=== PATIENT | female | born 1960 | race Caucasian/White ===

== ENCOUNTER 2019-04-02 11:04 | Outpatient (CLI) | payer OTHER ==
--- NOTE | 2019-04-03 10:01 | PET Report ---
PET/CT HISTORY: R91.8. Right lung mass TECHNIQUE: The patient's fasting blood glucose was 105. The patient weighed 134 lbs. The patient w as injected with 14.3 mCi of FDG in the right antecubital fossa at 1214 hours and imaging was started at 1306 hours. The patient was imaged from the skull base to the thighs. All CT scans at this [facility] are performed using CT dose reduction for ALARA by means of automated exposure control. Images we re reviewed on a workstation. COMPARISON: None at this facility FINDINGS: IMAGED BRAIN: [Physiologic FDG uptake]. Moderate to severe chronic appearing pansinusitis is noted. NECK: [There is focal uptake in the left superior neck which appears to correlate to a borderline le ft jugular lymph node. Max SUV of this node measures 7.3.] CHEST WALL: [Physiologic FDG uptake] MEDIASTINUM: [There are multiple borderline to mildly enlarged mediastinal lymph nodes which demonst rate hypermetabolic activity. A 1.1 cm right paratracheal lymph node demonstrates a max SUV of 6.3. A 2.3 cm subcarinal lymph node demonstrates a max SUV of 11.5. There are a few borderline right hilar lymph nodes with max SUV measuring up to 9.3. There are a few borderline left hilar lymph nodes with max SUV measuring up to 6.5.] LUNGS: [A 2.6 x 2.2 cm right suprahilar masslike lesion is identified. There appear to be small sutu re lines along the margins of this lesion suggesting previous surgical changes, correlate with histor y. This lesion is hypometabolic with max SUV measuring 2.0. HEPATOBILIARY: [Physiologic FDG uptake]. Liver SUV measures 4.5. PANCREAS: [Physiologic FDG uptake SPLEEN: [Physiologic FDG uptake] KIDNEYS/BLADDER: [Physiologic FDG uptake] ADRENAL GLANDS: [Physiologic FDG uptake] GI/MESENTERY: [Physiologic FDG uptake] PELVIC VISCERA: [Physiologic FDG uptake] LYMPH NODES: [Physiologic FDG uptake] OSSEOUS STRUCTURES: [Physiologic FDG uptake] ADDITIONAL FINDINGS: [None] IMPRESSION: A 2.6 x 2.2 cm right suprahilar lung lesion is identified although this lesion is hypometabolic with max SUV measuring 2.0. There is suggestion of previous surgical changes in this area. Please correlat e with the patient's history. There are multiple borderline to mildly enlarged and hypermetabolic mediastinal lymph nodes as descri bed above. There is also a similar appearing hypermetabolic left jugular lymph node. Metastatic disea se or lymphoma cannot be excluded. No abnormal metabolic activity is identified inferior to the diaphragm. Severe chronic pansinusitis. Signer Name: Gorge Toth Jr, MD Signed: 04/03/2019 9:56 AM Workstation Name: [id number]
== END 2019-04-02 11:05 | disposition home or self-care (01) ==
LOC: PET 11:04
PROVIDERS: ATTEND Internal Medicine
DX: R91.1 Solitary pulmonary nodule (principal); J32.4 Chronic pansinusitis
CPT/HCPCS: 78815; 82962; A9552

== ENCOUNTER 2021-05-01 13:39 | Outpatient (CLI) | payer OTHER ==
[2021-05-01 14:37] LABS: Hematocrit 45.4 % (30.3-42.9); Mean Corpuscular HGB Conc 33 % (30-34); Mean Corpuscular Volume 92 fl (79-97); Platelet Count 336 K/mm3 (140-440); Red Blood Count 4.94 M/mm3 (3.65-5.03); Red Cell Distribution Width 13.5 % (13.2-15.2)
[2021-05-01 14:54] LABS: ABG Base Excess 1.7 mmol/L (-2.0-3.0); ABG HCO3 24.6 mmol/L (20.0-26.0); ABG Methemoglobin 0.5 % (0.0-1.5); ABG Oxygen Saturation 94.9 % (95.0-99.0); ABG PCO2 33.8 mm Hg; ABG PH 7.479 pH Units (7.350-7.450); ABG PO2 62.1 mm Hg (80.0-90.0)
[2021-05-01 14:57] LABS: Alanine Aminotransferase 23 units/L (7-56); Albumin 4.6 g/dL (3.9-5); Blood Urea Nitrogen 5 mg/dL (7-17); Calcium 10.2 mg/dL (8.4-10.2); Chol/HDL Ratio 2.37 %; HDL Cholesterol 81 mg/dL (40-59); Hemolysis Index 4; LDL Cholesterol,Direct 105 mg/dL (50-130)
[2021-05-01 15:01] LABS: BUN/Creatinine Ratio 8
--- NOTE | 2021-05-01 16:56 | XRay Report ---
CHEST 2 VIEWS INDICATION / CLINICAL INFORMATION: J47.9-Bronchiectasis. COMPARISON: PET scan dated 04/02/19 FINDINGS: SUPPORT DEVICES: None. HEART / MEDIASTINUM: No significant abnormality. LUNGS / PLEURA: No acute airspace disease. Nodular density in the right suprahilar region is unchange d. This density was not hypermetabolic on prior PET scan. No pneumothorax. No bronchiectasis. ADDITIONAL FINDINGS: No significant additional findings. IMPRESSION: 1. No acute findings. Stable nodular density in the right suprahilar region. Signer Name: Román Feldman MD Signed: 05/01/2021 4:51 PM Workstation Name: [id number]
== END 2021-05-01 13:40 | disposition home or self-care (01) ==
LOC: XRAY 13:39
PROVIDERS: ATTEND Internal Medicine
DX: J47.9 Bronchiectasis, uncomplicated (principal); R91.8 Other nonspecific abnormal finding of lung field; R05.3 Chronic cough; J32.9 Chronic sinusitis, unspecified; R59.0 Localized enlarged lymph nodes; K21.9 Gastro-esophageal reflux disease without esophagitis; E78.00 Pure hypercholesterolemia, unspecified; Z68.23 Body mass index [BMI] 23.0-23.9, adult
CPT/HCPCS: 36415; 71046; 80053; 80061; 82785; 82803; 84436; 84443; 85027